=== PATIENT | male | born 1990 | race Two or more races ===

== ENCOUNTER 2021-12-12 07:11 | Emergency (ER) | payer OTHER ==
[~2021-12-12] VITALS: Ht 177.8 cm; Wt 97.7 kg
[2021-12-12 07:15] VITALS: BP 139/84
[2021-12-12] MEDS ORDERED: ERYT1OIN3 OS (07:36)
--- NOTE | 2021-12-12 07:36 | ED.ADGEN ---
General Adult EDM: Chief Complaint: EYE PROBLEMS HPI: HPI: Patient is a 31-year-old male who arrives ambulatory to the emergency department after experiencing an eye injury relative to a chemical exposure just prior to arrival. Patient works with this chemical regularly and became exposed to it for the course of his employment. Patient reports he was wearing safety glasses however it splashed up into the left side of his face at the medial aspect of his eye. Patient states this chemicals used to synthesize Inc[employer] and describes it as chemical 1257 (and MSDS sheet has been provided). Patient reports initial burning when exposed to the solvent and immediately utilize soap and water in order to irrigate the wound. Patient states since doing that he has experienced significant relief. At this time he reports only irritation. He denies medical complaint otherwise. He is awake, alert and nontoxic-appearing. Review of Systems: Review of Systems: Constitutional: Denies fever or chills. [] Eyes: Reports irritation and redness. Denies change in visual acuity. [] HENT: Denies nasal congestion or sore throat. [] Respiratory: Denies cough or shortness of breath. [] Cardiovascular: Denies chest pain or edema. [] GI: Denies abdominal pain, nausea, vomiting, bloody stools or diarrhea. [] : Denies dysuria. [] Musculoskeletal: Denies back pain or joint pain. [] Integument: Denies rash. [] Neurologic: Denies headache, focal weakness or sensory changes. [] Endocrine: Denies polyuria or polydipsia. [] Lymphatic: Denies swollen glands. [] Psychiatric: Denies depression or anxiety. [] Allergies: Allergies: Allergies Coded Allergies Type Severity Reaction Last Updated Verified No Known Drug Allergies 12/12/21 No Physical Exam: PE: Constitutional: Well developed, well nourished, no acute distress, non-toxic appearance. [] HENT: Normocephalic, atraumatic, bilateral external ears normal, oropharynx moist, no oral exudates, nose normal. [] Eyes: PERRLA, EOMI, conjunctiva normal, no discharge. [] Neck: Normal range of motion, no tenderness, supple, no stridor. [] Cardiovascular:Heart rate regular rhythm, no murmur [] Lungs & Thorax: Bilateral breath sounds clear to auscultation [] Abdomen: Bowel sounds normal, soft, no tenderness, no masses, no pulsatile masses. [] Skin: Warm, dry, no erythema, no rash. [] Back: No tenderness, no CVA tenderness. [] Extremities: No tenderness, no cyanosis, no clubbing, ROM intact, no edema. [] Neurologic: Alert and oriented X 3, normal motor function, normal sensory function, no focal deficits noted. [] Psychologic: Affect normal, judgement normal, mood normal. [] Current Patient Data: Vital Signs: Vital Signs Date Time Temp Pulse Resp B/P (MAP) Pulse Ox O2 Delivery O2 Flow Rate FiO2 12/12/21 07:15 98.3 64 16 139/84 (102) 99 Room Air 98.3 EKG: EKG: [] Heart Score: C/O Chest Pain: No Risk Factors: Risk Factors: DM, Current or recent (<one month) smoker, HTN, HLP, family history of CAD, obesity. Risk Scores: Score 0 - 3: 2.5% MACE over next 6 weeks - Discharge Home Score 4 - 6: 20.3% MACE over next 6 weeks - Admit for Clinical Observation Score 7 - 10: 72.7% MACE over next 6 weeks - Early Invasive Strategies Radiology/Procedures: Radiology/Procedures: [] Course & Med Decision Making: Course & Med Decision Making Pertinent Labs and Imaging studies reviewed. (See chart for details) [] The patient remains awake, alert and in no acute distress. Upon physical examination the patient does not have any obvious conjunctival irritation or anatomical change. I have elected to treat the patient empirically for corneal abrasion with antibiotic ointment as the patient does admit to rubbing his eye. He does state however that he is feeling much better. I have advised that he follow-up with an neckties painter/editor should he have any change to his vision or continued irritation. Furthermore he has been advised to wear protective eyewear whenever he is exposed to the solvents Dragon Disclaimer: Philip Disclaimer: This electronic medical record was generated, in whole or in part, using a voice recognition dictation system. Departure Departure Impression: Primary Impression: Chemical exposure of eye Disposition: HOME / SELF CARE / HOMELESS Condition: STABLE Patient Instructions: Conjunctivitis, Chemical, Eye - Corneal Abrasion Scripts Erythromycin Base (Erythromycin) 1 Gm Oint...g. 1 GM OS QID for 5 Days, #1 MISC Prov: MELLO GREWAL DO 12/12/21 MELLO GREWAL DO Dec 12, 2021 07:36
[2021-12-12] MEDS ORDERED: ERYT1OIN6 OS (07:52)
== END 2021-12-12 07:55 | disposition home or self-care (01) ==
LOC: ER 07:11
DX: Z77.098 Contact with and (suspected) exposure to other hazardous, chiefly nonmedicinal, chemicals (principal)
CPT/HCPCS: 99283